=== PATIENT | female | born 2005 | race Caucasian/White ===

== ENCOUNTER 2023-02-14 03:47 | Observation (INO) | payer MEDICAID ==
[2023-02-14] MEDS ORDERED: PREN-96 OR (04:33)
== END 2023-02-14 04:51 | disposition home or self-care (01) ==
LOC: LDRP 03:47
PROVIDERS: ADMIT Obstetrics & Gynecology; ATTEND Obstetrics & Gynecology
DX: O42.913 Preterm premature rupture of membranes, unspecified as to length of time between rupture and onset of labor, third trimester (principal); O26.893 Other specified pregnancy related conditions, third trimester; N89.8 Other specified noninflammatory disorders of vagina; O99.343 Other mental disorders complicating pregnancy, third trimester; F41.8 Other specified anxiety disorders; Z3A.30 30 weeks gestation of pregnancy
CPT/HCPCS: 59025; 81002; G0378

== ENCOUNTER 2023-03-28 19:46 | Observation (INO) | payer MEDICAID ==
[~2023-03-28] VITALS: Ht 154.9 cm; Wt 117.0 kg
[~2023-03-28 19:46] MED LIST: PREN-96 OR
== END 2023-03-28 22:12 | disposition home or self-care (01) ==
LOC: LDRP 19:46
PROVIDERS: ADMIT Obstetrics & Gynecology; ATTEND Obstetrics & Gynecology
DX: O26.893 Other specified pregnancy related conditions, third trimester (principal); R42 Dizziness and giddiness; R06.02 Shortness of breath; O62.9 Abnormality of forces of labor, unspecified; O99.824 Streptococcus B carrier state complicating childbirth; Z3A.36 36 weeks gestation of pregnancy
CPT/HCPCS: 59025; 76805; 76818; 81002; 94760; G0378

== ENCOUNTER 2023-04-07 17:36 | Observation (INO) | payer MEDICAID | END 2023-04-07 19:47 | disposition home or self-care (01) | LOC: LDRP 17:36 | PROVIDERS: ADMIT Obstetrics & Gynecology; ATTEND Obstetrics & Gynecology | DX: O36.8130 Decreased fetal movements, third trimester, not applicable or unspecified (principal); Z87.891 Personal history of nicotine dependence; Z3A.37 37 weeks gestation of pregnancy | CPT/HCPCS: 59025; 76818; 81002; 94760; G0378 ==

== ENCOUNTER 2023-04-08 21:35 | Observation (INO) | payer MEDICAID ==
[2023-04-09 00:25] LABS: Fern Testing Negative
== END 2023-04-09 00:56 | disposition home or self-care (01) ==
LOC: LDRP 21:35
PROVIDERS: ADMIT Obstetrics & Gynecology; ATTEND Obstetrics & Gynecology
DX: O36.8130 Decreased fetal movements, third trimester, not applicable or unspecified (principal); O47.1 False labor at or after 37 completed weeks of gestation; O46.93 Antepartum hemorrhage, unspecified, third trimester; O26.893 Other specified pregnancy related conditions, third trimester; M54.9 Dorsalgia, unspecified; Z87.891 Personal history of nicotine dependence; Z3A.37 37 weeks gestation of pregnancy
CPT/HCPCS: 59025; 76815; 81002; 84112; 94760; G0378; Q0114